=== PATIENT | female | born 1965 | race Two or more races ===

== ENCOUNTER 2022-10-09 09:08 | Outpatient (CLI) | payer OTHER | END 2022-10-09 09:16 | disposition home or self-care (01) | LOC: LAB 09:08 | DX: D50.9 Iron deficiency anemia, unspecified (principal); Z12.11 Encounter for screening for malignant neoplasm of colon; E03.9 Hypothyroidism, unspecified; E78.5 Hyperlipidemia, unspecified; R73.01 Impaired fasting glucose; M81.0 Age-related osteoporosis without current pathological fracture; D64.9 Anemia, unspecified; E55.9 Vitamin D deficiency, unspecified; D25.9 Leiomyoma of uterus, unspecified; I70.0 Atherosclerosis of aorta ==